=== PATIENT | female | born 1990 | race Caucasian/White ===

== ENCOUNTER 2019-01-30 14:28 | Emergency (ER) | payer MEDICAID ==
[~2019-01-30] VITALS: Ht 157.5 cm; Wt 63.4 kg
[2019-01-30 14:32] VITALS: Ht 157.5 cm; Wt 63.4 kg
[2019-01-30 15:08] LABS: HCG SERUM NEGATIVE (NEGATIVE)
[2019-01-30 15:18] LABS: APPEARANCE CLEAR (CLEAR); COLOR STRAW (YELLOW); SPECIFIC GRAVITY 1.005 (1.005-1.020)
[2019-01-30 15:18] LABS: BASOPHILS 0.2 % (0-2); EOSINOPHILS 1.9 % (0-7); HEMATOCRIT 42.8 % (36.0-48.0); HEMOGLOBIN 14.6 g/dL (12-16); IMMATURE GRANULOCYTES 0.2 % (0-5); MCH 31.4 pg (26.0-34.0); MCHC 34.1 g/dL (31.0-37.0); MEAN PLATELET VOLUME 9.5 fL (7.4-10.4); MONOCYTES 6.2 % (2-11); NEUTROPHILS 53.5 % (40-80); RBC 4.65 10x6/uL (4.00-5.40); RDW 12.9 % (11.5-14.5); WBC 6.3 10x3/uL (4.8-10.8)
[2019-01-30 15:19] LABS: BILIRUBIN NEGATIVE (NEGATIVE); GLUCOSE NEGATIVE (NEGATIVE); KETONE NEGATIVE (NEGATIVE); NITRITE NEGATIVE (NEGATIVE); PROTEIN NEGATIVE (NEGATIVE); UROBILINOGEN NORMAL (NORMAL)
[2019-01-30 15:20] LABS: PLATELET COUNT 253 10x3/uL (130-400)
[2019-01-30 15:32] LABS: ALBUMIN 4.1 g/dL (3.4-5.0); ALKALINE PHOSPHATASE 58 U/L (46-116); ALT (SGPT) 25 U/L (10-68); BILIRUBIN - TOTAL 0.31 mg/dL (0.2-1.3); CALC OSMOLALITY 275 mosm/kg (275-300); CARBON DIOXIDE 26.9 mmol/L (21.0-32.0); CHLORIDE - SERUM 102 mmol/L (98-107); CREATININE - SERUM 0.8 mg/dL (0.6-1.3); GLUCOSE 92 mg/dL (74-106); POTASSIUM - SERUM 3.5 mmol/L (3.5-5.1); PROTEIN - SERUM 7.5 g/dL (6.4-8.2); SODIUM 139 mmol/L (136-145); UREA NITROGEN 7 mg/dL (7-18); eGFR NON AFRICAN AMERICAN > 90 mL/min (90-120)
[2019-01-30 15:41] LABS: HCG - QUANTITATIVE (MATERNAL) 0 mIU/mL
[2019-01-30 17:55] VITALS: BP 118/76
== END 2019-01-30 17:56 | disposition home or self-care (01) ==
LOC: D.ER 14:28
PROVIDERS: Family Medicine
DX: R10.2 Pelvic and perineal pain (principal)

== ENCOUNTER → 2019-02-03 14:12 | Outpatient (CLI) | payer MEDICAID ==
[2019-01-30 14:32] VITALS: BMI 25.5
== END | disposition home or self-care (01) ==
LOC: D.US 14:12
PROVIDERS: ATTEND Obstetrics & Gynecology
DX: N83.209 Unspecified ovarian cyst, unspecified side (principal)

== ENCOUNTER 2020-05-22 16:29 | Emergency (ER) | payer MEDICAID ==
[~2020-05-22] VITALS: Ht 157.5 cm; Wt 66.8 kg
[2020-05-22 16:32] VITALS: Ht 157.5 cm; Wt 66.8 kg
[2020-05-22 16:53] LABS: BASOPHILS 0.2 % (0-2); HEMATOCRIT 39.8 % (36.0-48.0); IMMATURE GRANULOCYTES 0.3 % (0-5); LYMPHOCYTES 30.4 % (15-50); MCH 31.4 pg (26.0-34.0); MCHC 32.7 g/dL (31.0-37.0); MCV 96.1 fL (80.0-100.0); MONOCYTES 3.5 % (2-11); NEUTROPHILS 64.6 % (40-80); PLATELET COUNT 279 10x3/uL (130-400); RBC 4.14 10x6/uL (4.00-5.40); RDW 13.2 % (11.5-14.5); WBC 9.1 10x3/uL (4.8-10.8)
[2020-05-22 17:02] LABS: APTT 29.5 SECONDS (22.8-39.4); INR 0.86 (0.85-1.17); PROTIME 11.7 SECONDS (11.6-15.0)
[2020-05-22 17:05] LABS: CALC OSMOLALITY 272 mosm/kg (275-300); CARBON DIOXIDE 26.3 mmol/L (21.0-32.0); CHLORIDE - SERUM 102 mmol/L (98-107); CREATININE - SERUM 0.8 mg/dL (0.6-1.3); GLUCOSE 108 mg/dL (74-106); POTASSIUM - SERUM 3.7 mmol/L (3.5-5.1); SODIUM 137 mmol/L (136-145); UREA NITROGEN 6 mg/dL (7-18); eGFR NON AFRICAN AMERICAN 90 mL/min (90-120)
[2020-05-22 17:12] LABS: ALBUMIN 3.6 g/dL (3.4-5.0); ALKALINE PHOSPHATASE 73 U/L (30-120); ALT (SGPT) 38 U/L (10-68); BILIRUBIN - TOTAL 0.16 mg/dL (0.2-1.3)
[2020-05-22 17:29] LABS: HCG SERUM NEGATIVE (NEGATIVE)
[2020-05-22 17:44] LABS: BILIRUBIN NEGATIVE (NEGATIVE); KETONE NEGATIVE (NEGATIVE); NITRITE NEGATIVE (NEGATIVE); UROBILINOGEN NORMAL mg/dL (< 2)
[2020-05-22] MEDS ORDERED: IBUPROFEN800 MG PO (18:23)
[2020-05-22] MEDS ORDERED: CYCLOBENZAPRINE10 MG PO (18:23)
[2020-05-22] MEDS ORDERED: ACETAMINOPHEN500 M1 PO (18:23)
[2020-05-22 18:39] VITALS: BP 136/72
== END 2020-05-22 18:39 | disposition home or self-care (01) ==
LOC: D.ER 16:29
PROVIDERS: Family Medicine
DX: M54.9 Dorsalgia, unspecified (principal); M79.18 Myalgia, other site; T14.8XXA Other injury of unspecified body region, initial encounter; M54.2 Cervicalgia; S13.4XXA Sprain of ligaments of cervical spine, initial encounter; V89.2XXA Person injured in unspecified motor-vehicle accident, traffic, initial encounter; Y93.9 Activity, unspecified; Y92.9 Unspecified place or not applicable; R51.9 Headache, unspecified